=== PATIENT | female | born 2000 | race American Indian/Alaskan Native ===

== ENCOUNTER 2023-12-12 17:24 | Observation (INO) ==
[2023-12-12] MEDS ORDERED: IOPAMIDOL 100 ML BOTTLE IV ONE (17:25)
[2023-12-12] MEDS: KETOROLAC 15 MG/ML VIAL IM ONE (17:53)
[2023-12-13 08:46] LABS: Basophils # (Auto) 0.02 K/mcL (0.00-0.30); Basophils % (Auto) 0.3 % (0.0-2.0); Eosinophils # (Auto) 0.11 K/mcL (0.00-0.70); Eosinophils % (Auto) 1.9 % (0.0-7.0); Hematocrit 38.2 % (34.1-44.9); Hemoglobin 13.3 g/dL (11.2-15.7); Lymphocytes # (Auto) 1.38 K/mcL (1.50-4.80); Lymphocytes % (Auto) 23.9 % (15.5-49.0); Mean Cell Volume 95.7 fL (80.0-100.0); Mean Corpuscular HGB Conc 34.8 g/dL (31.0-36.0); Mean Platelet Volume 8.4 fL (8.8-12.5); Monocytes # (Auto) 0.35 K/mcL (0.10-0.90); Monocytes % (Auto) 6.1 % (1.0-12.0); Neutrophils % (Auto) 67.8 % (38.0-78.0); Platelet Count 221 K/mcL (140-440); RBC 3.99 M/mcL (3.59-5.38); Red Cell Distribution Width 11.5 % (11.5-14.5); WBC 5.8 K/mcL (4.5-11.0)
[2023-12-13 09:12] LABS: INR 1.1 (0.9-1.1); Partial Thromboplastin Time 28.7 sec (20.0-37.0); Prothrombin Time 14.1 sec (11.9-14.5)
[2023-12-13 09:20] LABS: Blood Urea Nitrogen 8 mg/dL (6-20); Calcium 9.4 mg/dL (8.6-10.4); Carbon Dioxide 22 mmol/L (22-30); Chloride 105 mmol/L (96-108); Glomerular Filtration Rate 102; Glucose 94 mg/dL (70-105); Potassium 4.1 mmol/L (3.3-5.1); Sodium 139 mmol/L (133-145)
[2023-12-13] MEDS: LORazepam 2 MG/ML VIAL IV ONE (10:00)
[2023-12-13] MEDS: fentaNYL 100 MCG/2 ML VIAL IV ONE (11:00)
[2023-12-13] MEDS: MIDAZOLAM 2 MG/2 ML VIAL IV ONE (11:00)
[2023-12-13] MEDS ORDERED: ACETAMINOPHEN 650 MG/65 ML BAG IV PRN (15:56)
[2023-12-13] MEDS ORDERED: oxyCODONE IR 5 MG TABLET PO PRN (15:58)
[2023-12-13] MEDS: HYDROmorphone 0.5 MG/0.5 ML SYRINGE IV PRN (17:20)
[2023-12-13] MEDS: traZODone HCL 50 MG TABLET PO PRN (22:24)
[2023-12-13] MEDS: HYDROcodone/APAP 5/325MG TABLET PO PRN (22:34)
[2023-12-14] MEDS: DROSPIRENONE ETHINYL ESTRADIOL PO SCH (08:35)
[2023-12-14] MEDS: DEXTROAMPHETAMINE AMPHETAMINE 20 MG PO SCH (08:35)
[2023-12-14] MEDS: ESCITALOPRAM 10 MG TABLET PO SCH (08:35)
== END 2023-12-15 15:55 | disposition home or self-care (01) ==
LOC: ED 17:24 → MEDSUR 17:24
PROVIDERS: ADMIT Surgery Surgical Critical Care; ATTEND Surgery Surgical Critical Care